=== PATIENT | female | born 1985 | race Two or more races ===

== ENCOUNTER 2023-05-31 07:20 | Emergency (ER) | payer OTHER ==
[~2023-05-31] VITALS: Ht 162.6 cm; Wt 70.9 kg
[2023-05-31] MEDS ORDERED: ONDANSETRON ODT 4 MG TAB PO ONE (08:15)
[2023-05-31] MEDS ORDERED: MORPHINE SULFATE INJ 2 MG/ml SYRG IM ONE (08:15)
[2023-05-31] MEDS ORDERED: LIDOCAINE 1% HCL (LOCAL ANESTH.) INJ 20ML MDV IJ ONE (09:30)
[2023-05-31 10:59] VITALS: BP 138/80
[2023-05-31] MEDS ORDERED: CEPH500T PO (11:01)
[2023-05-31] MEDS ORDERED: IBUP-1454 PO (11:01)
== END 2023-05-31 11:24 | disposition home or self-care (01) ==
LOC: EDBD 07:20 → ER 07:20
DX: S62.631A Displaced fracture of distal phalanx of left index finger, initial encounter for closed fracture (principal); S61.211A Laceration without foreign body of left index finger without damage to nail, initial encounter; X58.XXXA Exposure to other specified factors, initial encounter; Y93.89 Activity, other specified; Y92.89 Other specified places as the place of occurrence of the external cause; Y99.8 Other external cause status
CPT/HCPCS: 12002; 73130; 96372; 99283; Q0162

== ENCOUNTER 2025-10-04 15:39 | Outpatient (CLI) | payer OTHER ==
[~2025-10-04 15:39] MED LIST: CEPH500T PO; IBUP-1454 PO
[2025-10-04 16:12] LABS: Albumin 4.0 g/dL (3.2-4.8); Alkaline Phosphatase 96 U/L (46-116); Total Protein 6.8 g/dL (5.7-8.2)
[2025-10-04 16:14] LABS: Alanine Aminotransferase < 9 U/L (7-40); Bilirubin, Direct < 0.1 mg/dL (<0.3); Bilirubin, Total 0.2 mg/dL (0.2-1.0)
== END 2025-10-04 17:00 | disposition home or self-care (01) ==
LOC: LAB 15:39
PROVIDERS: ATTEND Podiatrist
DX: B35.1 Tinea unguium (principal)
CPT/HCPCS: 36415; 80076